=== PATIENT | female | born 1990 | race Caucasian/White ===

== ENCOUNTER 2020-07-31 16:35 | Inpatient (IN) | payer BC, OTHER ==
[~2020-07-31] VITALS: Ht 160 cm; Wt 122.5 kg
[2020-07-31 17:34] LABS: HEMOGLOBIN 11.3 gm/dl (12.3-15.3); RED BLOOD COUNT 3.69 M/UL (4.00-5.10); WHITE BLOOD COUNT 8.5 K/UL (4.5-11.0)
[2020-07-31] MEDS ORDERED: PRENATAL VITAM1 EAC3 PO (18:43)
[2020-07-31] MEDS ORDERED: ACID CONTROLLER20 MG PO (18:47)
[2020-08-02] MEDS ORDERED: IBUPROFEN600 MG PO (12:15)
[2020-08-02] MEDS ORDERED: HYDROCODON-ACE1 EAC6 PO (12:15)
[2020-08-02] MEDS ORDERED: COLACE 100MG C100 MG PO (12:15)
[2020-08-02] MEDS ORDERED: NYSTATIN1 EAC2 EXT (13:57)
[2020-08-03] MEDS ORDERED: CELEXA 20MG TAB20 MG PO (11:05)
[2020-08-03] MEDS ORDERED: NYSTATIN1 EAC2 MC (11:05)
[2020-08-03] MEDS ORDERED: COLACE 100MG C100 MG PO (11:05)
[2020-08-03] MEDS ORDERED: IBUPROFEN600 MG PO (11:05)
[2020-08-03] MEDS ORDERED: HYDROCODON-ACE1 EAC6 PO (11:05)
[2020-08-03] MEDS ORDERED: IRON325 M1 PO (11:14)
[2020-08-04] MEDS ORDERED: PROCARDIA XL30 MG PO (09:02)
== END 2020-08-04 14:00 | disposition home or self-care (01) | DRG 788 ==
LOC: GENOP 16:35 → OB 16:54
PROVIDERS: Obstetrics & Gynecology; ADMIT Obstetrics & Gynecology
PROC: 10907ZC Drainage of Amniotic Fluid, Therapeutic from Products of Conception, Via Natural or Artificial Opening (ICD-10-PCS; 2020-08-02)
PROC: 3E033VJ Introduction of Other Hormone into Peripheral Vein, Percutaneous Approach (ICD-10-PCS; 2020-08-02)
PROC: 10D00Z1 Extraction of Products of Conception, Low, Open Approach (ICD-10-PCS; principal; 2020-08-02 12:28)
DX: O13.4 Gestational [pregnancy-induced] hypertension without significant proteinuria, complicating childbirth (principal); O32.2XX9 Maternal care for transverse and oblique lie, other fetus; O33.9 Maternal care for disproportion, unspecified; O99.214 Obesity complicating childbirth; O36.63X0 Maternal care for excessive fetal growth, third trimester, not applicable or unspecified; Z3A.39 39 weeks gestation of pregnancy; Z37.0 Single live birth; E66.9 Obesity, unspecified; P08.1 Other heavy for gestational age newborn
CPT/HCPCS: 36415; 81001; 82800; 85014; 85018; 85025; C9113; J0690; J1200; J1650; J2274; J2405; J2590; J3010; J7120; U0002